=== PATIENT | female | born 1965 | race American Indian/Alaskan Native ===

== ENCOUNTER 2017-02-17 08:31 | Day surgery (SDC) | payer OTHER ==
--- NOTE | 2017-02-17 11:59 | Anesthesia Consultation ---
Anesthesia Consult and Med Hx Date of service: 02/17/17 - Airway Anesthetic Teeth Evaluation: Good ROM Head & Neck: Adequate Mental/Hyoid Distance: Adequate Mallampati Class: Class II Intubation Access Assessment: Possibly Difficult - Pulmonary Exam CTA: Yes - Cardiac Exam Cardiac Exam: RRR - Pre-Operative Health Status ASA Pre-Surgery Classification: ASA3 Proposed Anesthetic Plan: MAC - Pulmonary Hx Smoking: Yes Hx Asthma: Yes (albuterol TID, not on steroids) COPD: Yes - Cardiovascular System Hx Hypertension: Yes - Endocrine Hx Insulin Dependent Diabetes: Yes - Other Systems Hx Obesity: Yes
--- NOTE | 2017-02-17 11:59 | Anesthesia Day of Surgery ---
Anesthesia Day of Surgery - Day of Surgery Patient Examined: Yes Patient H&P Reviewed: Yes Patient is NPO: Yes
[2017-02-17] MEDS ORDERED: NACL 0.9% 1000 ML 1,000 ML IV SCH (12:00)
[2017-02-17] MEDS ORDERED: DIPRIVAN 10 MG/ML IV ONE ×5 (12:32→13:24)
--- NOTE | 2017-02-17 13:34 | Operative Report ---
Operative Report Operative Report: Date of procedure: 02/17/2017 Procedure: Colonoscopy with multiple hot biopsy polypectomies, multiple polyp ablations. Hemorrhoidal band ligation. Attending physician: Karl Mayo MD Animal Technician: Karl Mayo MD Indication: Patient is a 52-year-old female who presented with a history of recurrent anorectal discomfort and blood in stool. This procedure is done to evaluate patient that treatment may be directed based on the findings Consent: Informed consent was obtained after advising the patient and family regarding nature of this procedure, its indications, potential benefits as well as possible complications including but not limited to bleeding perforation and adverse reaction to medication, infection as well as other cardiopulmonary complications. An informed written and verbal consent was then obtained after due opportunity was provided for questions and answers. Monitoring: Patient was monitored continuously with pulse oximetry and electrocardiographic recordings as well as blood pressure recordings. Vital signs remained stable throughout this procedure with no untoward events. Preoperative assessment: Patient was assessed immediately prior to this procedure for capacity to tolerate monitored anesthesia care and moderate sedation as well as general anesthesia. Patient's ASA classification is 2, Mallampati class is 2, Hyomental distance is 3. Instrument: [employer] video endoscope Medications: Propofol given intravenously in divided doses. For details please refer to anesthesia records Description of procedure: Patient was placed in the left lateral decubitus position after achieving sedation, a digital rectal examination was performed following which the colonoscope was introduced into the anal verge and advanced to the cecum which was identified by the cecal valve, the appendiceal orifice, as well as by the cecal strap and direct transillumination. The colonoscope was subsequently withdrawn with careful inspection of all mucosal surfaces. Patient tolerated this procedure well and was subsequently taken to the recovery room. The following findings were noted. Findings: Patient had multiple polyps in the sigmoid colon and in the rectum. More than 20 of these polyps were removed by hot biopsy polypectomy and the sigmoid colon. These were all diminutive. About 5 of these polyps ablated in the sigmoid colon. In the rectum, 3 polyps removed by hot biopsy polypectomy. 6 polyps were ablated. There were a few scattered diverticula seen in the sigmoid and descending colon. The rest of the examination to the cecum was normal except for scattered retained stool seen throughout all sections of the colon. On the retroflex view at the anal verge, patient had prominent large internal hemorrhoids that were were friable and bled easily on contact. After removing the colonoscope, an endoscope was preloaded with multiband ligator kit : Super 7 Speedband. It was then reintroduced into the rectum. On the retroflex position, hemorrhoidal band ligation was performed. All bands were used in 5 positions. Patient tolerated procedure well and no untoward events. Impression: Mild diverticulosis. Multiple sigmoid colon polyp status post hot biopsy polypectomy. Multiple sigmoid colon polyp status post ablation. Multiple rectal polyps status post hot biopsy polypectomy. Nexium multiple rectal polyp status post ablation. Large prominent friable internal hemorrhoids status post successful hemorrhoidal band ligation. Neck slight scattered retained stool in various segments of the colon. Plan: Follow pathology report Consider repeat colonoscopy in 6 months due to poor colonoscopic preparation. Daily sitz baths. Anusol HC suppositories per rectum daily. As needed analgesics for pain control. As needed stool softeners. Patient is scheduled for outpatient follow-up in 2 weeks. Additional steps were taken in close outpatient follow-up.
--- NOTE | 2017-02-17 13:35 | Post Anesthesia Evaluation ---
- Post Anesthesia Evaluation Patient Participated: Yes Airway Patent: Yes Stable Respiratory Function: Yes Temp > 96.8F: Yes Pain Manageable: Yes Adequeate Hydration: Yes Anesthesia Complications: No Block Receding Appropriately: Not Applicable
--- NOTE | 2017-02-17 13:35 | Discharge Summary ---
Short Stay Discharge Plan Activity: advance as tolerated Weight Bearing Status: Weight Bear as Tolerated Diet: regular Follow up with: SONIA THURSTON MD [Primary Care Provider] - 7 Days
[2017-02-17] MEDS ORDERED: SUBLIMAZE IV ONE (13:39)
[2017-02-17 14:09] VITALS: BP 168/86
== END 2017-02-17 08:32 | disposition home or self-care (01) ==
LOC: GIO 08:31
PROVIDERS: ATTEND Internal Medicine Gastroenterology
DX: K63.5 Polyp of colon (principal); K62.1 Rectal polyp; K57.30 Diverticulosis of large intestine without perforation or abscess without bleeding; K64.8 Other hemorrhoids; J44.9 Chronic obstructive pulmonary disease, unspecified; I10 Essential (primary) hypertension; E11.9 Type 2 diabetes mellitus without complications; F17.200 Nicotine dependence, unspecified, uncomplicated; M19.90 Unspecified osteoarthritis, unspecified site; D64.9 Anemia, unspecified; E66.9 Obesity, unspecified; Z68.41 Body mass index [BMI] 40.0-44.9, adult; Z79.899 Other long term (current) drug therapy; Z88.5 Allergy status to narcotic agent; Z88.0 Allergy status to penicillin; Z88.8 Allergy status to other drugs, medicaments and biological substances; Z90.710 Acquired absence of both cervix and uterus; Z79.4 Long term (current) use of insulin; Z72.89 Other problems related to lifestyle
CPT/HCPCS: 45384; 45388; 45398; 88305; J2704; J3010; J7030

== ENCOUNTER 2017-10-22 08:46 | Emergency (ER) | payer OTHER ==
[2017-10-22] MEDS ORDERED: ASPIRIN PO ONE (09:08)
[2017-10-22 09:29] LABS: Basophils # (Auto) 0.1 K/mm3 (0.0-0.1); Basophils % (Auto) 1.4 % (0.0-1.8); Eosinophils # (Auto) 0.4 K/mm3 (0.0-0.4); Eosinophils % (Auto) 4.2 % (0.0-4.3); Hematocrit 45.1 % (30.3-42.9); Hemoglobin 14.3 gm/dl (10.1-14.3); Lymphocytes # (Auto) 2.6 K/mm3 (1.2-5.4); Lymphocytes % (Auto) 30.6 % (13.4-35.0); Mean Corpuscular HGB Conc 32 % (30-34); Mean Corpuscular Hemoglobin 29 pg (28-32); Mean Corpuscular Volume 92 fl (79-97); Monocytes # (Auto) 0.6 K/mm3 (0.0-0.8); Monocytes % (Auto) 6.7 % (0.0-7.3); Platelet Count 280 K/mm3 (140-440); Red Blood Count 4.93 M/mm3 (3.65-5.03)
[2017-10-22 09:42] LABS: BUN/Creatinine Ratio 16; Blood Urea Nitrogen 14 mg/dL (7-17); Calcium 9.1 mg/dL (8.4-10.2); Hemolysis Index 10
[2017-10-22 11:13] LABS: Alanine Aminotransferase 9 units/L (7-56); Albumin 3.6 g/dL (3.9-5)
[2017-10-22 11:16] LABS: Bilirubin,Direct < 0.2 mg/dL (0-0.2)
[2017-10-22] MEDS ORDERED: DILAUDID ONE (11:44)
[2017-10-22] MEDS ORDERED: HumuLIN R SUB-Q ONE (11:59)
[2017-10-22] MEDS ORDERED: DILAUDID IM ONE (12:00)
--- NOTE | 2017-10-22 12:03 | Emergency Department Report ---
ED General Adult HPI - General Chief complaint: Chest Pain Stated complaint: CP SOB LEG PAIN Time Seen by Provider: 10/22/17 10:06 Source: patient Mode of arrival: Ambulatory Limitations: No Limitations - History of Present Illness Initial comments: Patient presents to this department for she describes as numbness and tingling of her hands and feet. Patient also complains of having elevated glucose levels at home. She states that her glucometer always reads high. Patient also complains of this constant chest heaviness for the last month that has been continuous in nature. - Related Data Home Medications Medication Instructions Recorded Confirmed Last Taken ALBUTEROL NEB's 0.83 mg INHALATION DAILY 02/17/17 02/17/17 02/16/17 Hydrochlorothiazide 25 mg PO DAILY 02/17/17 02/17/17 02/17/17 Lantus Solostar 40 units SUB-Q TID 02/17/17 02/17/17 02/16/17 Losartan-Hctz 100-25 mg Tab 25 mg PO DAILY 02/17/17 02/17/17 02/17/17 NovoLOG Flexpen 15 units SUB-Q DAILY 02/17/17 02/17/17 02/16/17 Previous Rx's Medication Instructions Recorded Last Taken Type Oxycodone HCl/Acetaminophen 1 each PO Q6HR PRN #20 tablet 12/03/15 Unknown Rx [Percocet 10/325 mg] Allergies Allergy/AdvReac Type Severity Reaction Status Date / Time lisinopril Allergy Mild Swelling Verified 02/17/17 11:29 morphine Allergy Mild Itching Verified 02/17/17 11:29 Penicillins Allergy Mild Rash Verified 02/17/17 11:29 ED Review of Systems ROS: Stated complaint: CP SOB LEG PAIN Other details as noted in HPI Comment: All other systems reviewed and negative Constitutional: denies: chills, fever Eyes: denies: eye pain, eye discharge, vision change ENT: denies: ear pain, throat pain Respiratory: denies: cough, shortness of breath, wheezing Cardiovascular: denies: chest pain, palpitations Endocrine: no symptoms reported Gastrointestinal: denies: abdominal pain, nausea, diarrhea Genitourinary: denies: urgency, dysuria, discharge Musculoskeletal: denies: back pain, joint swelling, arthralgia Skin: denies: rash, lesions Neurological: denies: headache, weakness, paresthesias Psychiatric: denies: anxiety, depression Hematological/Lymphatic: denies: easy bleeding, easy bruising ED Past Medical Hx - Past Medical History Previous Medical History?: Yes Hx Hypertension: Yes Hx Diabetes: Yes Hx Asthma: Yes (albuterol TID, not on steroids) Hx COPD: Yes Additional medical history: Sciatic nerve pain, toothache pain and tooth abscess - Surgical History Past Surgical History?: Yes Additional Surgical History: Dental surgery, Tubaligation, Hysterectomy. back surgery to remove cyst from spine. RFA on back. nerve compression surgery to right arm - Social History Smoking Status: Current Every Day Smoker Substance Use Type: None - Medications Home Medications: Home Medications Medication Instructions Recorded Confirmed Last Taken Type Oxycodone HCl/Acetaminophen 1 each PO Q6HR PRN #20 tablet 12/03/15 02/17/17 Unknown Rx [Percocet 10/325 mg] ALBUTEROL NEB's 0.83 mg INHALATION DAILY 02/17/17 02/17/17 02/16/17 History Hydrochlorothiazide 25 mg PO DAILY 02/17/17 02/17/17 02/17/17 History Lantus Solostar 40 units SUB-Q TID 02/17/17 02/17/17 02/16/17 History Losartan-Hctz 100-25 mg Tab 25 mg PO DAILY 02/17/17 02/17/17 02/17/17 History NovoLOG Flexpen 15 units SUB-Q DAILY 02/17/17 02/17/17 02/16/17 History ED Physical Exam - General Limitations: No Limitations General appearance: alert, in no apparent distress - Head Head exam: Present: atraumatic, normocephalic - Eye Eye exam: Present: normal appearance, PERRL, EOMI - ENT ENT exam: Present: mucous membranes moist - Neck Neck exam: Present: normal inspection - Respiratory Respiratory exam: Present: normal lung sounds bilaterally. Absent: respiratory distress, wheezes, rales, rhonchi - Cardiovascular Cardiovascular Exam: Present: regular rate, normal rhythm. Absent: systolic murmur, diastolic murmur, rubs, gallop - GI/Abdominal GI/Abdominal exam: Present: soft, normal bowel sounds. Absent: distended, tenderness - Rectal Rectal exam: Present: deferred - Extremities Exam Extremities exam: Present: normal inspection - Back Exam Back exam: Present: normal inspection - Neurological Exam Neurological exam: Present: alert, oriented X3, CN II-XII intact. Absent: motor sensory deficit - Psychiatric Psychiatric exam: Present: normal affect, normal mood - Skin Skin exam: Present: dry ED Course Vital Signs 10/22/17 08:59 Temperature 98.9 F Pulse Rate 92 H Respiratory 18 Rate Blood Pressure 150/78 O2 Sat by Pulse 98 Oximetry ED Medical Decision Making - Lab Data Result diagrams: 10/22/17 09:12 10/22/17 09:12 - EKG Data -: EKG Interpreted by Me EKG shows normal: sinus rhythm Rate: normal - Medical Decision Making Discussed results with the patient Critical care attestation.: If time is entered above; I have spent that time in minutes in the direct care of this critically ill patient, excluding procedure time. ED Disposition Clinical Impression: Diabetic neuropathy, Nonspecific chest pain, Hyperglycemia Disposition: DC-01 TO HOME OR SELFCARE Is pt being admited?: No Does the pt Need Aspirin: No Condition: Stable Instructions: Diabetes Mellitus Type 2 in Adults (ED), Chest Pain (ED), Diabetic Neuropathy (ED) Additional Instructions: Return if symptoms become worse Referrals: PRIMARY CARE, [Primary Care Provider] - 3-5 Days SANJAY VIRK MD [Staff Physician] - 3-5 Days Time of Disposition: 13:59
[2017-10-22 13:16] LABS: Bacteria,Urine 1+ /HPF (Negative); Bilirubin,Urine NEG (Negative); Blood,Urine NEG (Negative); Color,Urine Yellow (Yellow); Mucus,Urine FEW /HPF; Urobilinogen,Urine < 2.0 mg/dL (<2.0)
[2017-10-22 15:01] VITALS: BP 147/86
== END 2017-10-22 15:01 | disposition home or self-care (01) ==
LOC: ED 08:46
DX: E11.40 Type 2 diabetes mellitus with diabetic neuropathy, unspecified (principal); E11.65 Type 2 diabetes mellitus with hyperglycemia; I10 Essential (primary) hypertension; J44.9 Chronic obstructive pulmonary disease, unspecified; F17.200 Nicotine dependence, unspecified, uncomplicated; Z88.6 Allergy status to analgesic agent; Z88.8 Allergy status to other drugs, medicaments and biological substances
CPT/HCPCS: 36415; 80048; 80074; 81001; 82010; 82805; 84484; 85025; 93005; 96372; 99284; J1170; 93010; J1815

== ENCOUNTER 2017-11-15 14:39 | Emergency (ER) | payer OTHER ==
[2017-11-15 14:42] VITALS: BP 159/91
== END 2017-11-15 19:22 | disposition left against medical advice (07) ==
LOC: ED 14:39
DX: M54.5 Low back pain (principal); Z53.21 Procedure and treatment not carried out due to patient leaving prior to being seen by health care provider